=== PATIENT | female | born 1980 | race Caucasian/White ===

== ENCOUNTER 2020-01-18 09:04 | Outpatient (CLI) | payer OTHER ==
[2020-01-18 09:29] LABS: BASOPHILS # (AUTO) 0.1 10^3/uL (0.0-0.1); BASOPHILS % (AUTO) 1.8 %; EOSINOPHILS # (AUTO) 0.6 10^3/uL (0.0-0.7); EOSINOPHILS % (AUTO) 7.3 %; HGB - HEMOGLOBIN 13.5 g/dL (12.0-16.0); LYMPHOCYTES # (AUTO) 1.8 10^3/uL (1.5-3.5); LYMPHOCYTES % (AUTO) 22.8 %; MEAN CORPUSCULAR HEMOGLOBIN 28.6 pg (27.0-31.0); MEAN CORPUSCULAR HGB CONC 32.8 g/dL (32.0-36.0); MEAN CORPUSCULAR VOLUME 87.3 fL (81.0-99.0); MEAN PLATELET VOLUME 9.6 fL (7.9-10.8); MONOCYTES # (AUTO) 0.6 10^3/uL (0.0-1.0); MONOCYTES % (AUTO) 7.3 %; NEUTROPHILS # (AUTO) 4.8 10^3/uL (1.5-6.6); NEUTROPHILS % (AUTO) 60.2 %; PLT - PLATELET COUNT 379 10^3/uL (130-450); RED BLOOD COUNT 4.72 10^6/uL (4.20-5.40); RED CELL DISTRIBUTION WIDTH 12.6 % (12.0-15.0)
[2020-01-18 13:52] LABS: THYROID STIMULATING HORMONE 1.88 uIU/mL (0.34-5.60)
[2020-01-18 13:54] LABS: FREE T4 (FREE THYROXINE) 1.09 ng/dL (0.58-1.64)
== END 2020-01-18 09:05 | disposition home or self-care (01) ==
LOC: LAB 09:04
PROVIDERS: ATTEND Specialist
DX: R42 Dizziness and giddiness (principal); E06.3 Autoimmune thyroiditis
CPT/HCPCS: 36415; 84439; 84443; 85025

== ENCOUNTER 2021-06-21 10:58 | Emergency (ER) | payer MEDICAID, OTHER ==
[2021-06-21 11:05] VITALS: BP 149/89
[2021-06-21] MEDS ORDERED: KETOROLAC 60 MG/2 ML VIAL IM STA (12:32)
[2021-06-21] MEDS ORDERED: CHERRY SYRUP 10 ML UDC PO ONE (12:33)
[2021-06-21] MEDS ORDERED: DEXAMETHASONE 10 MG/ML VIAL PO STA (12:33)
--- NOTE | 2021-06-21 12:55 | ED Physician Documentation ---
PD HPI BACK PAIN - Stated complaint Stated Complaint: UPPER BODY PX - Chief complaint Chief Complaint: Back Pain - History obtained from History obtained from: Patient - History of Present Illness Timing - onset: Today Timing - duration: Hours Timing - details: Abrupt onset, Still present Location: Upper Quality: Pain, Spasm, Sharp Associated symptoms: No: Fever, Weakness, Numbness, Incontinent of urine, Unable to urinate, Hematuria, Incontinent of stool Improves with: Rest, Position Worsened by: Movement, Lifting, Twisting, Palpation Contributing factors: Other (short handed at work in OR.) Similar symptoms before: Has not had sx before Recently seen: Not recently seen - Additional information Additional information: Previously well 40-year-old female reports that 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 She states it is bilateral from her shoulder blades and inward and she has not had this previously. 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 She has been doing a lot of lifting and carrying. She has not been injured otherwise previously and she has been well prior to this. Review of Systems Constitutional: denies: Fever Eyes: denies: Decreased vision Ears: denies: Ear pain Nose: denies: Rhinorrhea / runny nose, Congestion Throat: denies: Sore throat Cardiac: denies: Chest pain / pressure, Palpitations Respiratory: denies: Dyspnea, Cough GI: denies: Abdominal Pain, Nausea, Vomiting, Constipation, Diarrhea : denies: Dysuria, Frequency Skin: denies: Rash Musculoskeletal: reports: Back pain. denies: Neck pain, Extremity pain Neurologic: denies: Generalized weakness, Focal weakness, Numbness PD PAST MEDICAL HISTORY - Past Medical History Psych: Anxiety - Past Surgical History Past Surgical History: Yes General: Cholecystectomy - Present Medications Home Medications: Ambulatory Orders Medication Instructions Recorded Confirmed Levothyroxine [Synthroid] 150 mcg PO DAILY 06/18/14 06/21/21 Cyclobenzaprine [Flexeril] 10 mg PO TID PRN #20 tablet 06/21/21 HYDROcod/ACETAM 5/325 [[place] 5/325] 1 - 2 tablet PO Q6H PRN #14 tablet 06/21/21 buPROPion HCL [Bupropion HCl] 100 mg PO BID 06/21/21 06/21/21 - Allergies Allergies/Adverse Reactions: Allergies Allergy/AdvReac Type Severity Reaction Status Date / Time morphine Allergy Nausea Verified 06/21/21 11:05 - Social History Does the pt smoke?: No Smoking Status: Never smoker Does the pt drink ETOH?: No Does the pt have substance abuse?: No PD ED PE NORMAL - Vitals Vital signs reviewed: Yes (Hypertensive) - General General: Alert and oriented X 3, Well developed/nourished, Other (Patient appears to be in pain with filler picker tone and flattened affect) - HEENT HEENT: Atraumatic, PERRL, EOMI - Neck Neck: Supple, no meningeal sign, No bony TTP - Cardiac Cardiac: RRR, No murmur - Respiratory Respiratory: No respiratory distress, Clear bilaterally, Other (Tenderness to the paraspinous muscles especially over the rhomboids bilaterally and from about T10-T2 paraspinous.) - Abdomen Abdomen: Normal bowel sounds, Soft, Non tender, Non distended, No organomegaly - Back Back: No CVA TTP, Other (Pain to the paraspinous muscles of the upper back and to the rhomboids) - Derm Derm: Normal color, No rash - Extremities Extremities: No deformity, No edema - Neuro Neuro: Alert and oriented X 3, sewer and cutter finger buff material 2-12 intact, No motor deficit, No sensory deficit, Normal speech Eye Opening: Spontaneous Motor: Obeys Commands Verbal: Oriented GCS Score: 15 - Psych Psych: Normal mood, Normal affect Results - Vitals Vitals: Vital Signs - 24 hr 06/21/21 11:03 Temperature 36.3 C L Heart Rate 72 Respiratory 16 Rate Blood Pressure 149/89 H O2 Saturation 95 Oxygen O2 Source Room air - Rads (name of study) chest Radiology: Prelim report reviewed PD MEDICAL DECISION MAKING - ED course Complexity details: reviewed old records, reviewed results, re-evaluated patient, considered differential, d/w patient ED course: 40-year-old female with 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 Here in the emerge department she is treated with dexamethasone 10 mg orally and Toradol 60 mg IM and she has some improvement in her pain associated with this. We will treat her with pain medication muscle relaxant have her hydrate and follow-up as needed. Departure - Departure Disposition: 01 Home, Self Care Clinical Impression: Thoracic myofascial strain Qualifiers: Encounter type: initial encounter Qualified Code(s): S29.019A - Strain of muscle and tendon of unspecified wall of thorax, initial encounter Condition: Stable Instructions: ED Sprain Thoracic Spine Follow-Up: [facility] [Provider Group] Prescriptions: Cyclobenzaprine [Flexeril] 10 mg PO TID PRN #20 tablet PRN Reason: Spasms HYDROcod/ACETAM 5/325 [[place] 5/325] 1 - 2 tablet PO Q6H PRN #14 tablet PRN Reason: Pain Forms: Activity restrictions Discharge Date/Time: 06/21/21 13:44
--- NOTE | 2021-06-21 13:28 | XRAY Report ---
PROCEDURE: Chest 1 View X-Ray INDICATIONS: chest pain TECHNIQUE: One view of the chest was acquired. COMPARISON: None. FINDINGS: Surgical changes and devices: None. Lungs and pleura: No pleural effusions or pneumothorax. Lungs are clear. Mediastinum: Mediastinal contours appear normal. Heart size is normal. Bones and chest wall: No suspicious bony lesions. Overlying soft tissues appear unremarkable. IMPRESSION: No acute cardiopulmonary abnormality. Reviewed by: Ernesto Tellez MD on 06/21/2021 1:26 PM PDT Approved by: Ernesto Tellez MD on 06/21/2021 1:26 PM PDT Station ID: [id number]
== END 2021-06-21 13:44 | disposition home or self-care (01) ==
LOC: ED 10:58
DX: S29.019A Strain of muscle and tendon of unspecified wall of thorax, initial encounter (principal); X58.XXXA Exposure to other specified factors, initial encounter
CPT/HCPCS: 71045; 96372; 99283; 99284; A9270

== ENCOUNTER 2023-03-14 08:07 | Emergency (ER) | payer MEDICAID ==
[2023-03-14] MEDS ORDERED: DEXAMETHASONE 10 MG/ML VIAL PO STA (08:25)
[2023-03-14] MEDS ORDERED: CHERRY SYRUP 10 ML UDC PO ONE (08:25)
--- NOTE | 2023-03-14 08:28 | ED Physician Documentation ---
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 She is bringing up yellow and green phlegm. She has not had fever. She did do a COVID test at home which was negative. She was asked by her cloth mercerizing supervisor to come to the emergency department to be checked for strep. Review of Systems Constitutional: reports: Myalgias, Sweats. denies: Fever Eyes: denies: Decreased vision Ears: reports: Ear pain Nose: reports: Rhinorrhea / runny nose, Congestion Throat: reports: Sore throat Cardiac: denies: Chest pain / pressure, Palpitations Respiratory: reports: Cough. denies: Dyspnea GI: denies: Abdominal Pain, Nausea, Vomiting, Diarrhea PD PAST MEDICAL HISTORY - Past Medical History Psych: Anxiety - Past Surgical History Past Surgical History: Yes General: Cholecystectomy - Present Medications Home Medications: Ambulatory Orders Medication Instructions Recorded Confirmed Azithromycin [Zithromax] 250 mg PO DAILY #6 tablet 03/14/23 Levothyroxine [Synthroid] 125 mcg PO QDAC 03/14/23 03/14/23 amLODIPine [Norvasc] 10 mg PO DAILY 03/14/23 03/14/23 - Allergies Allergies/Adverse Reactions: Allergies Allergy/AdvReac Type Severity Reaction Status Date / Time morphine Allergy Nausea Verified 03/14/23 08:20 - Social History Does the pt smoke?: No Smoking Status: Never smoker Does the pt drink ETOH?: No Does the pt have substance abuse?: No PD ED PE NORMAL - General General: Alert and oriented X 3, No acute distress, Well developed/nourished - HEENT HEENT: Atraumatic, PERRL, EOMI, Ears normal, Moist mucous membranes, Other (minimal tonsillar hypertrophy) - Neck Neck: Supple, no meningeal sign, No bony TTP - Cardiac Cardiac: RRR, No murmur - Respiratory Respiratory: No respiratory distress, Clear bilaterally - Abdomen Abdomen: Soft, Non tender - Back Back: No CVA TTP, No spinal TTP - Derm Derm: Normal color, Warm and dry, No rash - Extremities Extremities: No deformity, No edema - Neuro Neuro: Alert and oriented X 3, feed research aide 2-12 intact, No motor deficit, Normal speech Eye Opening: Spontaneous Motor: Obeys Commands Verbal: Oriented GCS Score: 15 - Psych Psych: Normal mood, Normal affect Results - Vitals Vitals: Vital Signs - 24 hr 03/14/23 03/14/23 08:17 10:25 Temperature 36.9 C Heart Rate 90 78 Respiratory 16 16 Rate Blood Pressure 129/90 H 134/94 H O2 Saturation 96 100 Oxygen O2 Source Room air - Labs Labs: Laboratory Tests 03/14/23 03/14/23 08:32 08:32 Nasal Adenovirus (PCR) NOT DETECTED Nasal B. parapertussis DNA (PCR) NOT DETECTED Nasal Coronavir 229E PCR NOT DETECTED Nasal Coronavir HKU1 PCR NOT DETECTED Nasal Coronavir NL63 PCR NOT DETECTED Nasal Coronavir OC43 PCR NOT DETECTED Nasal Enterovir/Rhinovir PCR NOT DETECTED Nasal Influenza B PCR NOT DETECTED Nasal Influenza A PCR NOT DETECTED Nasal Parainfluen 1 PCR NOT DETECTED Nasal Parainfluen 2 PCR NOT DETECTED Nasal Parainfluen 3 PCR NOT DETECTED Nasal Parainfluen 4 PCR NOT DETECTED Nasal RSV (PCR) NOT DETECTED Nasal B.pertussis DNA PCR NOT DETECTED Nasal C.pneumoniae (PCR) NOT DETECTED [place] Human Metapneumo PCR NOT DETECTED Nasal M.pneumoniae (PCR) NOT DETECTED Nasal SARS-CoV-2 (PCR) NOT DETECTED Group A Strep Rapid Negative PD Medical Decision Making - ED course Complexity details: reviewed results, re-evaluated patient, considered differential, d/w patient ED course: 42-year-old Sultana Bunn has developed a sore throat, aches and fever beginning last night and she has lost her voice. 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 Departure - Departure Disposition: 01 Home, Self Care Clinical Impression: Viral URI with cough Condition: Stable Instructions: ED URI Viral Follow-Up: ALEX COUCH MD [Primary Care Provider] - Prescriptions: Azithromycin [Zithromax] 250 mg PO DAILY #6 tablet Comments: Nora we did not find evidence of a current virus in your nasal smear. You are coughing up yellow-green phlegm indicating a likely bacterial over infection of a previously inflamed site. We are prescribing some azithromycin for this. Our expectations with this is improvement in your cough and production of phlegm over the next 2 to 5 days. I have given you a note for work for 5 days. The azithromycin has been E scribed to the [facility] in [place]. Forms: Activity restrictions Discharge Date/Time: 03/14/23 10:26
[2023-03-14 08:51] LABS: RAPID STREP SCREEN Negative (Negative)
--- OUTSIDE RECORDS SUMMARY | 2023-03-14 09:04 | EXTERNAL MEDICAL SUMMARY RPT | Continuity of Care Document ---
Author Name Unknown Address [address] [place] [address] Phone Organization [facility] Address [address] [place] [address] Phone Care Team Providers Care Environmental Protection Specialist Name Role Phone Carson Montes De Oca Unavailable Unavailable Medications date description facility 2023-01-13 00:[address] [facility] 2023-01-15 00:[address] [facility] Problems date description facility 2023-01-15 15:21 Hypothyroidism, unspecified [facility] 2023-01-15 15:21 Essential (primary) hypertensio n [facility] 2023-01-15 15:[address] [facility] 2023-01-15 15:21 Occipital neuralgia [facility] 2023-01-15 15:21 Attention and concentration def icit [facility] 2023-01-15 15:[address] [facility] 2023-01-15 15:21 Hyperglycemia, unspecified [facility] 2023-01-15 15:21 Abnormal levels of other serum enzymes [facility] Results/Labs test date author facility value unit interpretation Result panel 1 (unknown) (no date) (unknown) [facility] (no value) (units unknown) (unknown) Result panel 2 (unknown) (no date) (unknown) [facility] (no value) (units unknown) (unknown) Result panel 3 (unknown) (no date) (unknown) [facility] (no value) (units unknown) (unknown) Result panel 4 (unknown) (no date) (unknown) [facility] (no value) (units unknown) (unknown) Result panel 5 (unknown) (no date) (unknown) [facility] (no value) (units unknown) (unknown) Result panel 6 (unknown) (no date) (unknown) [facility] (no value) (units unknown) (unknown) Result panel 7 (unknown) (no date) (unknown) (unknown) See Separate Report (units unknown) (unknown) Result panel 8 (unknown) (no date) (unknown) (unknown) (no value) (units unknown) 8251-1 (unknown) (no date) (unknown) (unknown) (no value) (units unknown) (unknown) (unknown) (no date) (unknown) (unknown) >10.00 iu/ml (unknown ) (unknown) (no date) (unknown) (unknown) >10.00 iu/ml 29846-3 (unknown) (no date) (unknown) (unknown) 0.01 iu/ml (unknown ) (unknown) (no date) (unknown) (unknown) 0.01 iu/ml 65143-3 (unknown) (no date) (unknown) (unknown) 0.01 iu/ml 56717-9 (unknown) (no date) (unknown) (unknown) 0.01 iu/ml 55544-3 (unknown) (no date) (unknown) (unknown) Negative (units unknown) 52808-0 (unknown) (no date) (unknown) (unknown) Negative (units unknown) (unknown) Result panel 9 (unknown) (no date) (unknown) (unknown) >10.00 iu/ml (unknown ) (unknown) (no date) (unknown) (unknown) 0.01 iu/ml (unknown ) (unknown) (no date) (unknown) (unknown) Comment (units unknown) (unknown) (unknown) (no date) (unknown) (unknown) Comment (units unknown) (unknown) (unknown) (no date) (unknown) (unknown) Negative (units unknown) (unknown) (unknown) (no date) (unknown) (unknown) Negative (units unknown) (unknown) Result panel 10 (unknown) (no date) (unknown) (unknown) (no value) (units unknown) (unknown) (unknown) (no date) (unknown) (unknown) 01/15/23 (units unknown) (unknown) (unknown) (no date) (unknown) (unknown) 09:12 (units unknown) (unknown) (unknown) (no date) (unknown) (unknown) [id number] (units unknown) (unknown) (unknown) (no date) (unknown) (unknown) Age/Sex: 42 / F Date of Service: (units unknown) (unknown) (unknown) (no date) (unknown) (unknown) Allergies (units unknown) (unknown) (unknown) (no date) (unknown) (unknown) [place] [address] (units unknown) (unknown) (unknown) (no date) (unknown) (unknown) Anesthesia (units unknown) (unknown) (unknown) (no date) (unknown) (unknown) Anxiety (units unknown) (unknown) (unknown) (no date) (unknown) (unknown) Attending Dr: Carson Montes De Oca MD (units unknown) (unknown) (unknown) (no date) (unknown) (unknown) BP 142/88 H (units unknown) (unknown) (unknown) (no date) (unknown) (unknown) Blood Pressure Location Rt radial (units unknown) (unknown) (unknown) (no date) (unknown) (unknown) Chronic facial pain (units unknown) (unknown) (unknown) (no date) (unknown) (unknown) Chronic fatigue (uni ts unknown) (unknown) (unknown) (no date) (unknown) (unknown) : 3 Acct:[id number] (units unknown) (unknown) (unknown) (no date) (unknown) (unknown) Depression wit h anxiety (units unknown) (unknown) (unknown) (no date) (unknown) (unknown) Dept at . (units unknown) (unknown) (unknown) (no date) (unknown) (unknown) Documented By: Carson Montes De Oca MD 01/15/23 0909 (units unknown) (unknown) (unknown) (no date) (unknown) (unknown) Draft (units unknown) (unknown) (unknown) (no date) (unknown) (unknown) Elevated liver enzymes (units unknown) (unknown) (unknown) (no date) (unknown) (unknown) Family Practic e Office Visit (units unknown) (unknown) (unknown) (no date) (unknown) (unknown) [facility] (units unknown) (unknown) (unknown) (no date) (unknown) (unknown) Robert's thyroiditis (units unknown) (unknown) (unknown) (no date) (unknown) (unknown) Headache disorder (u nits unknown) (unknown) (unknown) (no date) (unknown) (unknown) Height 5 ft 5 in (un its unknown) (unknown) (unknown) (no date) (unknown) (unknown) Herpes (-2013) (unit s unknown) (unknown) (unknown) (no date) (unknown) (unknown) Hip pain (-2016) (un its unknown) (unknown) (unknown) (no date) (unknown) (unknown) History of cholecystectomy (-2001) (units unknown) (unknown) (unknown) (no date) (unknown) (unknown) History of endometrial biopsy (units unknown) (unknown) (unknown) (no date) (unknown) (unknown) Hypertension (units unknown) (unknown) (unknown) (no date) (unknown) (unknown) Hypothyroidism (-2009) (units unknown) (unknown) (unknown) (no date) (unknown) (unknown) Intake Note: (units unknown) (unknown) (unknown) (no date) (unknown) (unknown) Intake perform ed by: Luanne Sibley (units unknown) (unknown) (unknown) (no date) (unknown) (unknown) Intake (units unknown) (unknown) (unknown) (no date) (unknown) (unknown) Intake- Alli al Staff (units unknown) (unknown) (unknown) (no date) (unknown) (unknown) Last Menstural Cycle + Details (units unknown) (unknown) (unknown) (no date) (unknown) (unknown) Loc: [facility] (units unknown) (unknown) (unknown) (no date) (unknown) (unknown) Medical Histor y (Updated 10/10/22 @ 07:49 by Carson Montes De Oca MD) (units unknown) (unknown) (unknown) (no date) (unknown) (unknown) Menorrhagia (units unknown) (unknown) (unknown) (no date) (unknown) (unknown) Occipital neuralgia (units unknown) (unknown) (unknown) (no date) (unknown) (unknown) Other Menstrua l Period: Other ([facility] 01/2020) (units unknown) (unknown) (unknown) (no date) (unknown) (unknown) Oxygen Deliver y Method room air (units unknown) (unknown) (unknown) (no date) (unknown) (unknown) PFSH (units unknown) (unknown) (unknown) (no date) (unknown) (unknown) Palpitations (units unknown) (unknown) (unknown) (no date) (unknown) (unknown) Patient: Nora Bunn MR#: [id number] (units unknown) (unknown) (unknown) (no date) (unknown) (unknown) Position Sitting (un its unknown) (unknown) (unknown) (no date) (unknown) (unknown) Pulse 67 (units unknown) (unknown) (unknown) (no date) (unknown) (unknown) Pulse Oximetry (%) 99 (units unknown) (unknown) (unknown) (no date) (unknown) (unknown) Pulse Source Monitor (units unknown) (unknown) (unknown) (no date) (unknown) (unknown) Reason For Visit (un its unknown) (unknown) (unknown) (no date) (unknown) (unknown) Respiration 20 (unit s unknown) (unknown) (unknown) (no date) (unknown) (unknown) Right hip pain (unit s unknown) (unknown) (unknown) (no date) (unknown) (unknown) Signed By: (units unknown) (unknown) (unknown) (no date) (unknown) (unknown) Smoking Status : Current some day smoker (units unknown) (unknown) (unknown) (no date) (unknown) (unknown) Social History (unit s unknown) (unknown) (unknown) (no date) (unknown) (unknown) Surgical Histo ry (units unknown) (unknown) (unknown) (no date) (unknown) (unknown) This note may have been all or partially generated using voice recognition (units unknown) (unknown) (unknown) (no date) (unknown) (unknown) Thyroid nodule (-2016) (units unknown) (unknown) (unknown) (no date) (unknown) (unknown) Tobacco + Subs tance Use (units unknown) (unknown) (unknown) (no date) (unknown) (unknown) Tobacco Status (unit s unknown) (unknown) (unknown) (no date) (unknown) (unknown) Trigeminal ner ve disorder, unspecified (units unknown) (unknown) (unknown) (no date) (unknown) (unknown) Visit Reasons: f/u new BP meds, weight loss options (units unknown) (unknown) (unknown) (no date) (unknown) (unknown) Vitals (units unknown) (unknown) (unknown) (no date) (unknown) (unknown) alcohol intake : current (units unknown) (unknown) (unknown) (no date) (unknown) (unknown) have occurred. If there are any questions, please contact the Medical Records (units unknown) (unknown) (unknown) (no date) (unknown) (unknown) household memb ers: spouse and significant other (units unknown) (unknown) (unknown) (no date) (unknown) (unknown) may occur. Occasional wrong-word or 'sound-alike' substitutions may have (units unknown) (unknown) (unknown) (no date) (unknown) (unknown) morphine [MORP NIYA] Allergy (Intermediate, Verified 04/10/21 12:56) (units unknown) (unknown) (unknown) (no date) (unknown) (unknown) occurred due t o the inherent limitations of voice recognition software. Please (units unknown) (unknown) (unknown) (no date) (unknown) (unknown) palpitations, and hot flashes (units unknown) (unknown) (unknown) (no date) (unknown) (unknown) projectile vomiting (units unknown) (unknown) (unknown) (no date) (unknown) (unknown) pt arrives for appt and states she wants to discuss weight loss options, heart (units unknown) (unknown) (unknown) (no date) (unknown) (unknown) read the note carefully and recognize, using context, where these substitutions (units unknown) (unknown) (unknown) (no date) (unknown) (unknown) software. Alth ough every effort is made to edit content, executive marketing assistant errors (units unknown) (unknown) Result panel 11 (unknown) (no date) (unknown) (unknown) (no value) (units unknown) (unknown) (unknown) (no date) (unknown) (unknown) (1) Hypertension: (u nits unknown) (unknown) (unknown) (no date) (unknown) (unknown) (2) Elevated l iver enzymes: (units unknown) (unknown) (unknown) (no date) (unknown) (unknown) (3) Hypothyroidism: (units unknown) (unknown) (unknown) (no date) (unknown) (unknown) (4) Hyperglycemia: ( units unknown) (unknown) (unknown) (no date) (unknown) (unknown) (5) Obesity: (units unknown) (unknown) (unknown) (no date) (unknown) (unknown) (6) Hirsutism: (unit s unknown) (unknown) (unknown) (no date) (unknown) (unknown) (7) Palpitations: (u nits unknown) (unknown) (unknown) (no date) (unknown) (unknown) 01/15/23 (units unknown) (unknown) (unknown) (no date) (unknown) (unknown) 09:12 (units unknown) (unknown) (unknown) (no date) (unknown) (unknown) [id number] (units unknown) (unknown) (unknown) (no date) (unknown) (unknown) Abnormal level s of other serum enzymes (units unknown) (unknown) (unknown) (no date) (unknown) (unknown) Age/Sex: 42 / F Date of Service: (units unknown) (unknown) (unknown) (no date) (unknown) (unknown) Allergies (units unknown) (unknown) (unknown) (no date) (unknown) (unknown) [place] [address] (units unknown) (unknown) (unknown) (no date) (unknown) (unknown) Anesthesia (units unknown) (unknown) (unknown) (no date) (unknown) (unknown) Anxiety (units unknown) (unknown) (unknown) (no date) (unknown) (unknown) Assessment + Plan (u nits unknown) (unknown) (unknown) (no date) (unknown) (unknown) Attending Dr: Carson Montes De Oca MD (units unknown) (unknown) (unknown) (no date) (unknown) (unknown) BP 142/88 H (units unknown) (unknown) (unknown) (no date) (unknown) (unknown) Blood Pressure Location Rt radial (units unknown) (unknown) (unknown) (no date) (unknown) (unknown) Chronic facial pain (units unknown) (unknown) (unknown) (no date) (unknown) (unknown) Chronic fatigue (uni ts unknown) (unknown) (unknown) (no date) (unknown) (unknown) : 3 Acct:[id number] (units unknown) (unknown) (unknown) (no date) (unknown) (unknown) Depression wit h anxiety (units unknown) (unknown) (unknown) (no date) (unknown) (unknown) Dept at . (units unknown) (unknown) (unknown) (no date) (unknown) (unknown) Discontinued Reason: Provider's Order 100 mg PO BID 60 ea 3RF (units unknown) (unknown) (unknown) (no date) (unknown) (unknown) Discontinued (units unknown) (unknown) (unknown) (no date) (unknown) (unknown) Documented By: Carson Montes De Oca MD 01/15/23 0909 (units unknown) (unknown) (unknown) (no date) (unknown) (unknown) Draft (units unknown) (unknown) (unknown) (no date) (unknown) (unknown) Elevated liver enzymes (units unknown) (unknown) (unknown) (no date) (unknown) (unknown) Essential (danial yoseph) hypertension (units unknown) (unknown) (unknown) (no date) (unknown) (unknown) Essential (danial yoseph) hypertension, R73.9 - Hyperglycemia, unspecified, R74.8 (units unknown) (unknown) (unknown) (no date) (unknown) (unknown) Estrogen 1 Wee k L68.0 - Hirsutism (units unknown) (unknown) (unknown) (no date) (unknown) (unknown) Family Practic e Office Visit (units unknown) (unknown) (unknown) (no date) (unknown) (unknown) [facility] (units unknown) (unknown) (unknown) (no date) (unknown) (unknown) Robert's thyroiditis (units unknown) (unknown) (unknown) (no date) (unknown) (unknown) Headache disorder (u nits unknown) (unknown) (unknown) (no date) (unknown) (unknown) Height 5 ft 5 in (un its unknown) (unknown) (unknown) (no date) (unknown) (unknown) Hemoglobin A1C % w Est Avg Glu 1 Week E03.9 - Hypothyroidism, unspecified, I10 (units unknown) (unknown) (unknown) (no date) (unknown) (unknown) Herpes (-2012) (unit s unknown) (unknown) (unknown) (no date) (unknown) (unknown) Hip pain (-2016) (un its unknown) (unknown) (unknown) (no date) (unknown) (unknown) History of cholecystectomy (-2001) (units unknown) (unknown) (unknown) (no date) (unknown) (unknown) History of endometrial biopsy (units unknown) (unknown) (unknown) (no date) (unknown) (unknown) Hypertension t ype: primary hypertension Qualified Code(s): I10 (units unknown) (unknown) (unknown) (no date) (unknown) (unknown) Hypertension (units unknown) (unknown) (unknown) (no date) (unknown) (unknown) Hypothyroidism (-2009) (units unknown) (unknown) (unknown) (no date) (unknown) (unknown) Hypothyroidism type: acquired Qualified Code(s): E03.9 (units unknown) (unknown) (unknown) (no date) (unknown) (unknown) Hypothyroidism , unspecified (units unknown) (unknown) (unknown) (no date) (unknown) (unknown) Intake Note: (units unknown) (unknown) (unknown) (no date) (unknown) (unknown) Intake perform ed by: Luanne Sibley (units unknown) (unknown) (unknown) (no date) (unknown) (unknown) Intake (units unknown) (unknown) (unknown) (no date) (unknown) (unknown) Intake- Alli al Staff (units unknown) (unknown) (unknown) (no date) (unknown) (unknown) Last Menstural Cycle + Details (units unknown) (unknown) (unknown) (no date) (unknown) (unknown) Loc: [facility] (units unknown) (unknown) (unknown) (no date) (unknown) (unknown) Medical Histor y (Updated 10/10/22 @ 07:49 by Carson Montes De Oca MD) (units unknown) (unknown) (unknown) (no date) (unknown) (unknown) Medications: (units unknown) (unknown) (unknown) (no date) (unknown) (unknown) Menorrhagia (units unknown) (unknown) (unknown) (no date) (unknown) (unknown) New (units unknown) (unknown) (unknown) (no date) (unknown) (unknown) Occipital neuralgia (units unknown) (unknown) (unknown) (no date) (unknown) (unknown) Orders (units unknown) (unknown) (unknown) (no date) (unknown) (unknown) Orders: (units unknown) (unknown) (unknown) (no date) (unknown) (unknown) Other Menstrua l Period: Other ([facility] 01/2020) (units unknown) (unknown) (unknown) (no date) (unknown) (unknown) Oxygen Deliver y Method room air (units unknown) (unknown) (unknown) (no date) (unknown) (unknown) PFSH (units unknown) (unknown) (unknown) (no date) (unknown) (unknown) Palpitations (units unknown) (unknown) (unknown) (no date) (unknown) (unknown) Patient: Nora Bunn MR#: [id number] (units unknown) (unknown) (unknown) (no date) (unknown) (unknown) Position Sitting (un its unknown) (unknown) (unknown) (no date) (unknown) (unknown) Pulse 67 (units unknown) (unknown) (unknown) (no date) (unknown) (unknown) Pulse Oximetry (%) 99 (units unknown) (unknown) (unknown) (no date) (unknown) (unknown) Pulse Source Monitor (units unknown) (unknown) (unknown) (no date) (unknown) (unknown) Qualifiers: (units unknown) (unknown) (unknown) (no date) (unknown) (unknown) Reason For Visit (un its unknown) (unknown) (unknown) (no date) (unknown) (unknown) Referral Cardio/Pulmonary Rehab R00.2 - Palpitations (units unknown) (unknown) (unknown) (no date) (unknown) (unknown) Referral Dieta ry E03.9 - Hypothyroidism, unspecified, E66.9 - Obesity, (units unknown) (unknown) (unknown) (no date) (unknown) (unknown) Referrals (units unknown) (unknown) (unknown) (no date) (unknown) (unknown) Respiration 20 (unit s unknown) (unknown) (unknown) (no date) (unknown) (unknown) Right hip pain (unit s unknown) (unknown) (unknown) (no date) (unknown) (unknown) Signed By: (units unknown) (unknown) (unknown) (no date) (unknown) (unknown) Smoking Status : Current some day smoker (units unknown) (unknown) (unknown) (no date) (unknown) (unknown) Social History (unit s unknown) (unknown) (unknown) (no date) (unknown) (unknown) Status: Acute (units unknown) (unknown) (unknown) (no date) (unknown) (unknown) Status: Chronic (uni ts unknown) (unknown) (unknown) (no date) (unknown) (unknown) Surgical Histo ry (units unknown) (unknown) (unknown) (no date) (unknown) (unknown) Testosterone F ree and Total 1 Week L68.0 - Hirsutism (units unknown) (unknown) (unknown) (no date) (unknown) (unknown) This note may have been all or partially generated using voice recognition (units unknown) (unknown) (unknown) (no date) (unknown) (unknown) Thyroid nodule (-2016) (units unknown) (unknown) (unknown) (no date) (unknown) (unknown) Tobacco + Subs tance Use (units unknown) (unknown) (unknown) (no date) (unknown) (unknown) Tobacco Status (unit s unknown) (unknown) (unknown) (no date) (unknown) (unknown) Trigeminal ner ve disorder, unspecified (units unknown) (unknown) (unknown) (no date) (unknown) (unknown) Visit Reasons: f/u new BP meds, weight loss options (units unknown) (unknown) (unknown) (no date) (unknown) (unknown) Vitals (units unknown) (unknown) (unknown) (no date) (unknown) (unknown) alcohol intake : current (units unknown) (unknown) (unknown) (no date) (unknown) (unknown) bupropion HCl (Wellbutrin SR) (units unknown) (unknown) (unknown) (no date) (unknown) (unknown) bupropion HCl (Wellbutrin XL) 150 mg PO QAM 90 tabs 3RF (units unknown) (unknown) (unknown) (no date) (unknown) (unknown) have occurred. If there are any questions, please contact the Medical Records (units unknown) (unknown) (unknown) (no date) (unknown) (unknown) household memb ers: spouse and significant other (units unknown) (unknown) (unknown) (no date) (unknown) (unknown) may occur. Occasional wrong-word or 'sound-alike' substitutions may have (units unknown) (unknown) (unknown) (no date) (unknown) (unknown) morphine [MORP NIYA] Allergy (Intermediate, Verified 04/10/21 12:56) (units unknown) (unknown) (unknown) (no date) (unknown) (unknown) occurred due t o the inherent limitations of voice recognition software. Please (units unknown) (unknown) (unknown) (no date) (unknown) (unknown) other serum enzymes (units unknown) (unknown) (unknown) (no date) (unknown) (unknown) palpitations, and hot flashes (units unknown) (unknown) (unknown) (no date) (unknown) (unknown) projectile vomiting (units unknown) (unknown) (unknown) (no date) (unknown) (unknown) pt arrives for appt and states she wants to discuss weight loss options, heart (units unknown) (unknown) (unknown) (no date) (unknown) (unknown) read the note carefully and recognize, using context, where these substitutions (units unknown) (unknown) (unknown) (no date) (unknown) (unknown) software. Alth ough every effort is made to edit content, executive marketing assistant errors (units unknown) (unknown) (unknown) (no date) (unknown) (unknown) unspecified, I 10 - Essential (primary) hypertension, R74.8 - Abnormal levels of (units unknown) (unknown) Result panel 12 (unknown) (no date) (unknown) (unknown) 0.29 ng/dl (unknown ) (unknown) (no date) (unknown) (unknown) 0.29 ng/dl 2991-8 (unknown) (no date) (unknown) (unknown) 1.36 % (unknown ) (unknown) (no date) (unknown) (unknown) 1.36 % 18114-4 (unknown) (no date) (unknown) (unknown) 107 pg/ml 2254-1 (unknown) (no date) (unknown) (unknown) 107 pg/ml (unknown ) (unknown) (no date) (unknown) (unknown) 21.4 ng/dl 2986-8 (unknown) (no date) (unknown) (unknown) 21.4 ng/dl (unknown ) Result panel 13 (unknown) (no date) (unknown) (unknown) 1.3 % (unknown ) (unknown) (no date) (unknown) (unknown) 100 /ul (unknown ) (unknown) (no date) (unknown) (unknown) 13.3 g/dl (unknown ) (unknown) (no date) (unknown) (unknown) 13.4 % (unknown ) (unknown) (no date) (unknown) (unknown) 1600 /ul (unknown ) (unknown) (no date) (unknown) (unknown) 200 /ul (unknown ) (unknown) (no date) (unknown) (unknown) 21.4 % (unknown ) (unknown) (no date) (unknown) (unknown) 26.9 pg (unknown ) (unknown) (no date) (unknown) (unknown) 3.0 % (unknown ) (unknown) (no date) (unknown) (unknown) 33.6 % (unknown ) (unknown) (no date) (unknown) (unknown) 39.5 % (unknown ) (unknown) (no date) (unknown) (unknown) 4.93 x10 6/ul (unknow n) (unknown) (no date) (unknown) (unknown) 400 /ul (unknown ) (unknown) (no date) (unknown) (unknown) 400 x10 3/ul (unknow n) (unknown) (no date) (unknown) (unknown) 5.5 % (unknown ) (unknown) (no date) (unknown) (unknown) 5300 /ul (unknown ) (unknown) (no date) (unknown) (unknown) 68.8 % (unknown ) (unknown) (no date) (unknown) (unknown) 7.7 x10 3/ul (unknow n) (unknown) (no date) (unknown) (unknown) 80.2 fl (unknown ) Result panel 14 (unknown) (no date) (unknown) (unknown) 5.3 % (unknown ) (unknown) (no date) (unknown) (unknown) 5.3 % (unknown ) Result panel 15 (unknown) (no date) (unknown) (unknown) (no value) (units unknown) (unknown) (unknown) (no date) (unknown) (unknown) (1) Hypertension: (u nits unknown) (unknown) (unknown) (no date) (unknown) (unknown) (2) Elevated l iver enzymes: (units unknown) (unknown) (unknown) (no date) (unknown) (unknown) (3) Hypothyroidism: (units unknown) (unknown) (unknown) (no date) (unknown) (unknown) (4) Hyperglycemia: ( units unknown) (unknown) (unknown) (no date) (unknown) (unknown) (5) Obesity: (units unknown) (unknown) (unknown) (no date) (unknown) (unknown) (6) Hirsutism: (unit s unknown) (unknown) (unknown) (no date) (unknown) (unknown) (7) Palpitations: (u nits unknown) (unknown) (unknown) (no date) (unknown) (unknown) 01/15/23 1043 (units unknown) (unknown) (unknown) (no date) (unknown) (unknown) 01/15/23 (units unknown) (unknown) (unknown) (no date) (unknown) (unknown) 09:12 (units unknown) (unknown) (unknown) (no date) (unknown) (unknown) [id number] (units unknown) (unknown) (unknown) (no date) (unknown) (unknown) Abnormal level s of other serum enzymes (units unknown) (unknown) (unknown) (no date) (unknown) (unknown) Age/Sex: 42 / F Date of Service: (units unknown) (unknown) (unknown) (no date) (unknown) (unknown) Allergies (units unknown) (unknown) (unknown) (no date) (unknown) (unknown) Nora is a 42-year-old female with a history of hypothyroidism who is here to (units unknown) (unknown) (unknown) (no date) (unknown) (unknown) [place] [address] (units unknown) (unknown) (unknown) (no date) (unknown) (unknown) Anesthesia (units unknown) (unknown) (unknown) (no date) (unknown) (unknown) Anxiety (units unknown) (unknown) (unknown) (no date) (unknown) (unknown) Appearance: (units unknown) (unknown) (unknown) (no date) (unknown) (unknown) Assessment + Plan (u nits unknown) (unknown) (unknown) (no date) (unknown) (unknown) Attending Dr: Carson Montes De Oca MD (units unknown) (unknown) (unknown) (no date) (unknown) (unknown) BP 142/88 H (units unknown) (unknown) (unknown) (no date) (unknown) (unknown) Blood Pressure Location Rt radial (units unknown) (unknown) (unknown) (no date) (unknown) (unknown) CTAB (units unknown) (unknown) (unknown) (no date) (unknown) (unknown) CV (units unknown) (unknown) (unknown) (no date) (unknown) (unknown) Chief Complaint (uni ts unknown) (unknown) (unknown) (no date) (unknown) (unknown) Chief Complain t: Follow up palpitations, weight (units unknown) (unknown) (unknown) (no date) (unknown) (unknown) Chronic facial pain (units unknown) (unknown) (unknown) (no date) (unknown) (unknown) Chronic fatigue (uni ts unknown) (unknown) (unknown) (no date) (unknown) (unknown) Code(s): E66.9 - Obesity, unspecified; Z68.36 - Body mass index [BMI] 36.0-36.9, (units unknown) (unknown) (unknown) (no date) (unknown) (unknown) Cognition: (units unknown) (unknown) (unknown) (no date) (unknown) (unknown) Const General: healthy appearing, pleasant, no acute distress (units unknown) (unknown) (unknown) (no date) (unknown) (unknown) : 3 Acct:[id number] (units unknown) (unknown) (unknown) (no date) (unknown) (unknown) Depression wit h anxiety (units unknown) (unknown) (unknown) (no date) (unknown) (unknown) Dept at . (units unknown) (unknown) (unknown) (no date) (unknown) (unknown) Details: (units unknown) (unknown) (unknown) (no date) (unknown) (unknown) Discontinued Reason: Provider's Order 100 mg PO BID 60 ea 3RF (units unknown) (unknown) (unknown) (no date) (unknown) (unknown) Discontinued (units unknown) (unknown) (unknown) (no date) (unknown) (unknown) Documented By: Carson Montes De Oca MD 01/15/23 0909 (units unknown) (unknown) (unknown) (no date) (unknown) (unknown) Effort + Inspection: (units unknown) (unknown) (unknown) (no date) (unknown) (unknown) Elevated liver enzymes (units unknown) (unknown) (unknown) (no date) (unknown) (unknown) Essential (danial hameed) hypertension (units unknown) (unknown) (unknown) (no date) (unknown) (unknown) Essential (danial hameed) hypertension, R73.9 - Hyperglycemia, unspecified, R74.8 (units unknown) (unknown) (unknown) (no date) (unknown) (unknown) Estrogen Today L68.0 - Hirsutism (units unknown) (unknown) (unknown) (no date) (unknown) (unknown) Exam Narrative (unit s unknown) (unknown) (unknown) (no date) (unknown) (unknown) Exam Narrative: (uni ts unknown) (unknown) (unknown) (no date) (unknown) (unknown) Exam (units unknown) (unknown) (unknown) (no date) (unknown) (unknown) Family Practic e Office Visit (units unknown) (unknown) (unknown) (no date) (unknown) (unknown) [facility] (units unknown) (unknown) (unknown) (no date) (unknown) (unknown) General: (units unknown) (unknown) (unknown) (no date) (unknown) (unknown) HPI (units unknown) (unknown) (unknown) (no date) (unknown) (unknown) Robert's thyroiditis (units unknown) (unknown) (unknown) (no date) (unknown) (unknown) Headache disorder (u nits unknown) (unknown) (unknown) (no date) (unknown) (unknown) Height 5 ft 5 in (un its unknown) (unknown) (unknown) (no date) (unknown) (unknown) Hemoglobin A1C % w Est Avg Glu Today E03.9 - Hypothyroidism, unspecified, I10 (units unknown) (unknown) (unknown) (no date) (unknown) (unknown) Herpes (-2012) (unit s unknown) (unknown) (unknown) (no date) (unknown) (unknown) Hip pain (-2016) (un its unknown) (unknown) (unknown) (no date) (unknown) (unknown) History of cholecystectomy (-2001) (units unknown) (unknown) (unknown) (no date) (unknown) (unknown) History of endometrial biopsy (units unknown) (unknown) (unknown) (no date) (unknown) (unknown) Home blood pressures have been improving since increasing amlodipine to 10 mg (units unknown) (unknown) (unknown) (no date) (unknown) (unknown) Hypertension t ype: primary hypertension Qualified Code(s): I10 (units unknown) (unknown) (unknown) (no date) (unknown) (unknown) Hypertension (units unknown) (unknown) (unknown) (no date) (unknown) (unknown) Hypothyroidism (-2009) (units unknown) (unknown) (unknown) (no date) (unknown) (unknown) Hypothyroidism type: acquired Qualified Code(s): E03.9 (units unknown) (unknown) (unknown) (no date) (unknown) (unknown) Hypothyroidism , unspecified (units unknown) (unknown) (unknown) (no date) (unknown) (unknown) Intake Note: (units unknown) (unknown) (unknown) (no date) (unknown) (unknown) Intake perform ed by: Luanne Sibley (units unknown) (unknown) (unknown) (no date) (unknown) (unknown) Intake (units unknown) (unknown) (unknown) (no date) (unknown) (unknown) Intake- Alli sun Staff (units unknown) (unknown) (unknown) (no date) (unknown) (unknown) Last Menstural Cycle + Details (units unknown) (unknown) (unknown) (no date) (unknown) (unknown) Loc: [facility] (units unknown) (unknown) (unknown) (no date) (unknown) (unknown) Medical Histor y (Updated 10/10/22 @ 07:49 by Carson Montes De Oca MD) (units unknown) (unknown) (unknown) (no date) (unknown) (unknown) Medications: (units unknown) (unknown) (unknown) (no date) (unknown) (unknown) Menorrhagia (units unknown) (unknown) (unknown) (no date) (unknown) (unknown) Neuro (units unknown) (unknown) (unknown) (no date) (unknown) (unknown) New (units unknown) (unknown) (unknown) (no date) (unknown) (unknown) Obesity type: unspecified obesity type Obesity classification: adult (units unknown) (unknown) (unknown) (no date) (unknown) (unknown) Occipital neuralgia (units unknown) (unknown) (unknown) (no date) (unknown) (unknown) Orders (units unknown) (unknown) (unknown) (no date) (unknown) (unknown) Orders: (units unknown) (unknown) (unknown) (no date) (unknown) (unknown) Orientation: a lert, awake and oriented x3 (units unknown) (unknown) (unknown) (no date) (unknown) (unknown) Other Menstrua l Period: Other ([facility] 01/2020) (units unknown) (unknown) (unknown) (no date) (unknown) (unknown) Oxygen Deliver y Method room air (units unknown) (unknown) (unknown) (no date) (unknown) (unknown) PFSH (units unknown) (unknown) (unknown) (no date) (unknown) (unknown) Palpitations (units unknown) (unknown) (unknown) (no date) (unknown) (unknown) Patient: Nora Bunn MR#: [id number] (units unknown) (unknown) (unknown) (no date) (unknown) (unknown) Plan (units unknown) (unknown) (unknown) (no date) (unknown) (unknown) Position Sitting (un its unknown) (unknown) (unknown) (no date) (unknown) (unknown) Psych (units unknown) (unknown) (unknown) (no date) (unknown) (unknown) Pulse 67 (units unknown) (unknown) (unknown) (no date) (unknown) (unknown) Pulse Oximetry (%) 99 (units unknown) (unknown) (unknown) (no date) (unknown) (unknown) Pulse Source Monitor (units unknown) (unknown) (unknown) (no date) (unknown) (unknown) Qualifiers: (units unknown) (unknown) (unknown) (no date) (unknown) (unknown) RRR, no murmur s or ectopic beats (units unknown) (unknown) (unknown) (no date) (unknown) (unknown) Reason For Visit (un its unknown) (unknown) (unknown) (no date) (unknown) (unknown) Referral Cardio/Pulmonary Rehab R00.2 - Palpitations (units unknown) (unknown) (unknown) (no date) (unknown) (unknown) Referral Dieta ry E03.9 - Hypothyroidism, unspecified, E66.9 - Obesity, (units unknown) (unknown) (unknown) (no date) (unknown) (unknown) Referrals (units unknown) (unknown) (unknown) (no date) (unknown) (unknown) Resp (units unknown) (unknown) (unknown) (no date) (unknown) (unknown) Respiration 20 (unit s unknown) (unknown) (unknown) (no date) (unknown) (unknown) Right hip pain (unit s unknown) (unknown) (unknown) (no date) (unknown) (unknown) Signed By: <Electronically signed by Carson Montes De Oca MD> (units unknown) (unknown) (unknown) (no date) (unknown) (unknown) Signed (units unknown) (unknown) (unknown) (no date) (unknown) (unknown) Smoking Status : Current some day smoker (units unknown) (unknown) (unknown) (no date) (unknown) (unknown) Social History (unit s unknown) (unknown) (unknown) (no date) (unknown) (unknown) Status: Acute (units unknown) (unknown) (unknown) (no date) (unknown) (unknown) Status: Chronic (uni ts unknown) (unknown) (unknown) (no date) (unknown) (unknown) Surgical Histo ry (units unknown) (unknown) (unknown) (no date) (unknown) (unknown) Testosterone F ree and Total Today L68.0 - Hirsutism (units unknown) (unknown) (unknown) (no date) (unknown) (unknown) This note may have been all or partially generated using voice recognition (units unknown) (unknown) (unknown) (no date) (unknown) (unknown) Thyroid nodule (-2017) (units unknown) (unknown) (unknown) (no date) (unknown) (unknown) Tobacco + Subs tance Use (units unknown) (unknown) (unknown) (no date) (unknown) (unknown) Tobacco Status (unit s unknown) (unknown) (unknown) (no date) (unknown) (unknown) Trigeminal ner ve disorder, unspecified (units unknown) (unknown) (unknown) (no date) (unknown) (unknown) Visit Reasons: f/u new BP meds, weight loss options (units unknown) (unknown) (unknown) (no date) (unknown) (unknown) Vitals (units unknown) (unknown) (unknown) (no date) (unknown) (unknown) abnormal menst rual cycles, it is possible she has excess testosterone and we (units unknown) (unknown) (unknown) (no date) (unknown) (unknown) adult (units unknown) (unknown) (unknown) (no date) (unknown) (unknown) affect and nor mal thought content (units unknown) (unknown) (unknown) (no date) (unknown) (unknown) alcohol intake : current (units unknown) (unknown) (unknown) (no date) (unknown) (unknown) b.i.d.. She is hoping for possible increase. Her weight has not decreased (units unknown) (unknown) (unknown) (no date) (unknown) (unknown) bupropion HCl (Wellbutrin SR) (units unknown) (unknown) (unknown) (no date) (unknown) (unknown) bupropion HCl (Wellbutrin XL) 150 mg PO QAM 90 tabs 3RF (units unknown) (unknown) (unknown) (no date) (unknown) (unknown) class 2 (BMI 3 5 - 39.9) Serious obesity comorbidity presence: unspecified (units unknown) (unknown) (unknown) (no date) (unknown) (unknown) daily. For her weight, will refer to nutrition and check some labs. We also (units unknown) (unknown) (unknown) (no date) (unknown) (unknown) despite dietar y efforts. She is wondering about medication options. Also does (units unknown) (unknown) (unknown) (no date) (unknown) (unknown) did discuss so me possible weight loss medications including Ozempic. Will (units unknown) (unknown) (unknown) (no date) (unknown) (unknown) follow up on palpitations, weight, blood pressure as well as mood. She is not (units unknown) (unknown) (unknown) (no date) (unknown) (unknown) grossly normal , mental status grossly normal, speech and movement normal, normal (units unknown) (unknown) (unknown) (no date) (unknown) (unknown) have occurred. If there are any questions, please contact the Medical Records (units unknown) (unknown) (unknown) (no date) (unknown) (unknown) hirsutism and is uncertain about her menstrual cycle because of not having a (units unknown) (unknown) (unknown) (no date) (unknown) (unknown) household memb ers: spouse and significant other (units unknown) (unknown) (unknown) (no date) (unknown) (unknown) may occur. Occasional wrong-word or 'sound-alike' substitutions may have (units unknown) (unknown) (unknown) (no date) (unknown) (unknown) morphine [MORP NIYA] Allergy (Intermediate, Verified 04/10/21 12:56) (units unknown) (unknown) (unknown) (no date) (unknown) (unknown) normal cognition (un its unknown) (unknown) (unknown) (no date) (unknown) (unknown) normal respira tory effort, able to speak in complete sentences and no (units unknown) (unknown) (unknown) (no date) (unknown) (unknown) noticed a significant difference with fluoxetine and Wellbutrin 100 mg SR (units unknown) (unknown) (unknown) (no date) (unknown) (unknown) occurred due t o the inherent limitations of voice recognition software. Please (units unknown) (unknown) (unknown) (no date) (unknown) (unknown) other serum enzymes (units unknown) (unknown) (unknown) (no date) (unknown) (unknown) palpitations, and hot flashes (units unknown) (unknown) (unknown) (no date) (unknown) (unknown) patient alert, awake, patient oriented x3 (units unknown) (unknown) (unknown) (no date) (unknown) (unknown) projectile vomiting (units unknown) (unknown) (unknown) (no date) (unknown) (unknown) pt arrives for appt and states she wants to discuss weight loss options, heart (units unknown) (unknown) (unknown) (no date) (unknown) (unknown) read the note carefully and recognize, using context, where these substitutions (units unknown) (unknown) (unknown) (no date) (unknown) (unknown) respiratory distress (units unknown) (unknown) (unknown) (no date) (unknown) (unknown) software. Alth ough every effort is made to edit content, executive marketing assistant errors (units unknown) (unknown) (unknown) (no date) (unknown) (unknown) stability. John ahn also check 2 weeks Zio patch. (units unknown) (unknown) (unknown) (no date) (unknown) (unknown) switch Wellbut rin 250 mg extended release. For her hirsutism and previously (units unknown) (unknown) (unknown) (no date) (unknown) (unknown) unspecified, I 10 - Essential (primary) hypertension, R74.8 - Abnormal levels of (units unknown) (unknown) (unknown) (no date) (unknown) (unknown) uterus. She al so does continue to have intermittent palpitations. (units unknown) (unknown) (unknown) (no date) (unknown) (unknown) whether seriou s comorbidity present Body mass index: BMI 36.0-36.9 Qualified (units unknown) (unknown) (unknown) (no date) (unknown) (unknown) will check [facility] s lab. For her palpitations, thyroid lab and CBC to ensure (units unknown) (unknown) Result panel 16 (unknown) (no date) (unknown) (unknown) > 60 ml/min (unknown ) (unknown) (no date) (unknown) (unknown) > 60 ml/min (unknown ) (unknown) (no date) (unknown) (unknown) 0.4 mg/dl (unknown ) (unknown) (no date) (unknown) (unknown) 0.68 mg/dl (unknown ) (unknown) (no date) (unknown) (unknown) 1.2 (units unknown) (unknown) (unknown) (no date) (unknown) (unknown) 105 mmol/l (unknown ) (unknown) (no date) (unknown) (unknown) 108 mg/dl (unknown ) (unknown) (no date) (unknown) (unknown) 108 mg/dl (unknown ) (unknown) (no date) (unknown) (unknown) 138 mg/dl (unknown ) (unknown) (no date) (unknown) (unknown) 138 mg/dl (unknown ) (unknown) (no date) (unknown) (unknown) 141 mmol/l (unknown ) (unknown) (no date) (unknown) (unknown) 213 mg/dl (unknown ) (unknown) (no date) (unknown) (unknown) 213 mg/dl (unknown ) (unknown) (no date) (unknown) (unknown) 25 mg/dl (unknown ) (unknown) (no date) (unknown) (unknown) 29 iu/l (unknown ) (unknown) (no date) (unknown) (unknown) 29 mmol/l (unknown ) (unknown) (no date) (unknown) (unknown) 3.7 g/dl (unknown ) (unknown) (no date) (unknown) (unknown) 3.7 mmol/l (unknown ) (unknown) (no date) (unknown) (unknown) 36.8 (units unknown) (unknown) (unknown) (no date) (unknown) (unknown) 4.5 g/dl (unknown ) (unknown) (no date) (unknown) (unknown) 43 iu/l (unknown ) (unknown) (no date) (unknown) (unknown) 53 mg/dl (unknown ) (unknown) (no date) (unknown) (unknown) 53 mg/dl (unknown ) (unknown) (no date) (unknown) (unknown) 69 u/l (unknown ) (unknown) (no date) (unknown) (unknown) 8.2 g/dl (unknown ) (unknown) (no date) (unknown) (unknown) 9.1 mg/dl (unknown ) (unknown) (no date) (unknown) (unknown) 94 mg/dl (unknown ) (unknown) (no date) (unknown) (unknown) 94 mg/dl (unknown ) Result panel 17 (unknown) (no date) (unknown) (unknown) 117.8 mg/dl (unknown ) (unknown) (no date) (unknown) (unknown) 28.0 ug/mg cr (unknow n) (unknown) (no date) (unknown) (unknown) 28.0 ug/mg cr (unknow n) (unknown) (no date) (unknown) (unknown) 3.3 mg/dl (unknown ) Result panel 18 (unknown) (no date) (unknown) (unknown) 0.30 uiu/ml (unknown ) Result panel 19 (unknown) (no date) (unknown) (unknown) 0.30 uiu/ml (unknown ) (unknown) (no date) (unknown) (unknown) 1.55 ng/dl (unknown ) Result panel 20 (unknown) (no date) (unknown) (unknown) 107 pg/ml (unknown ) (unknown) (no date) (unknown) (unknown) 107 pg/ml (unknown ) Result panel 21 (unknown) (no date) (unknown) (unknown) 0.29 ng/dl (unknown ) (unknown) (no date) (unknown) (unknown) 1.36 % (unknown ) (unknown) (no date) (unknown) (unknown) 1.36 % (unknown ) (unknown) (no date) (unknown) (unknown) 107 pg/ml (unknown ) (unknown) (no date) (unknown) (unknown) 107 pg/ml (unknown ) (unknown) (no date) (unknown) (unknown) 21.4 ng/dl (unknown ) (unknown) (no date) (unknown) (unknown) 21.4 ng/dl (unknown ) Social History date description facility 2023-01-15 00:00 Current some day [facility] Vital Signs date measurement value units 2023-01-15 00:00 BP_diastolic 88 mmHg 2023-01-15 00:00 BP_systolic 142 mmHg 2023-01-15 00:00 heart_rate 67 /min 2023-01-15 00:00 height_metric 165.1 cm 2023-01-15 00:00 height_standard 65 in 2023-01-15 00:00 o2_saturation 99 % 2023-01-15 00:00 respiration_rate 20 /min
[2023-03-14 09:38] LABS: B. PARAPERTUSSIS- RESP PCR PAN NOT DETECTED; B. PERTUSSIS- RESP PCR PANEL NOT DETECTED; C. PNEUMONIAE- RESP PCR PANEL NOT DETECTED; CORONAVIRUS 229E-RESP PCR NOT DETECTED; CORONAVIRUS HKU1-RESP PCR NOT DETECTED; CORONAVIRUS NL63-RESP PCR NOT DETECTED; CORONAVIRUS OC43-RESP PCR NOT DETECTED; HUMAN METAPNEUMOVIRUS NOT DETECTED; INFLUENZA A- RESP PCR PANEL NOT DETECTED; INFLUENZA B - RESP PCR PANEL NOT DETECTED; M. PNEUMONIAE- RESP PCR PANEL NOT DETECTED; PARAINFLUENZA VIRUS 1 NOT DETECTED; PARAINFLUENZA VIRUS 2 NOT DETECTED; PARAINFLUENZA VIRUS 3 NOT DETECTED; PARAINFLUENZA VIRUS 4 NOT DETECTED; RHINOVIRUS/ENTEROVIRUS NOT DETECTED; RSV- RESP PCR PANEL NOT DETECTED; SARS-CoV-2 -RESP PCR PANEL NOT DETECTED
[2023-03-14 10:26] VITALS: BP 134/94
== END 2023-03-14 10:26 | disposition home or self-care (01) ==
LOC: ED 08:07
DX: J06.9 Acute upper respiratory infection, unspecified (principal); Z20.822 Contact with and (suspected) exposure to COVID-19
CPT/HCPCS: 87070; 87430; 87633; 99283; 99284; A9270

== ENCOUNTER 2024-05-19 15:12 | Outpatient (CLI) | payer MEDICAID ==
[2024-05-19 15:28] LABS: BASOPHILS # (AUTO) 0.1 10^3/uL (0.0-0.1); BASOPHILS % (AUTO) 1.1 %; EOSINOPHILS # (AUTO) 0.1 10^3/uL (0.0-0.7); EOSINOPHILS % (AUTO) 1.5 %; LYMPHOCYTES # (AUTO) 1.5 10^3/uL (1.5-3.5); MEAN CORPUSCULAR HEMOGLOBIN 27.4 pg (27.0-31.0); MEAN CORPUSCULAR HGB CONC 31.7 g/dL (32.0-36.0); MEAN CORPUSCULAR VOLUME 86.3 fL (81.0-99.0); MEAN PLATELET VOLUME 9.6 fL (7.9-10.8); MONOCYTES # (AUTO) 0.5 10^3/uL (0.0-1.0); MONOCYTES % (AUTO) 5.4 %; NEUTROPHILS # (AUTO) 6.7 10^3/uL (1.5-6.6); NEUTROPHILS % (AUTO) 74.7 %; PLT - PLATELET COUNT 442 10^3/uL (130-450); RED BLOOD COUNT 4.75 10^6/uL (4.20-5.40); RED CELL DISTRIBUTION WIDTH 12.5 % (12.0-15.0); WHITE BLOOD COUNT 8.9 x10^3/uL (4.8-10.8)
[2024-05-19 15:41] LABS: ALBUMIN 4.7 g/dL (3.2-5.5); ALBUMIN/GLOBULIN RATIO 1.4 (1.0-2.2); BILIRUBIN,TOTAL 0.5 mg/dL (0.2-1.0); CALCIUM 10.2 mg/dL (8.5-10.3); POTASSIUM 3.8 mmol/L (3.5-4.5)
== END 2024-05-19 15:13 | disposition home or self-care (01) ==
LOC: LAB 15:12
PROVIDERS: ATTEND Family Medicine
DX: I10 Essential (primary) hypertension (principal); R74.8 Abnormal levels of other serum enzymes
CPT/HCPCS: 36415; 80053; 85025

== ENCOUNTER 2024-06-17 11:10 | Outpatient (CLI) | payer BC ==
--- NOTE | 2024-06-20 15:25 | XRAY Report ---
PROCEDURE: Hip w/Pelvis 2-3V RT INDICATIONS: RIGHT HIP PAIN TECHNIQUE: 2 views of the hip were acquired. COMPARISON: None. FINDINGS: Bones: No fractures or dislocations. No suspicious bony lesions. Trace narrowing at the right hip joint. Soft tissues: No suspicious soft tissue calcifications or masses. IMPRESSION: Trace right hip joint space narrowing possibly related to early arthritic change. Reviewed by: Velvet Ogden MD on 06/20/2024 3:24 PM PDT Approved by: Velvet Ogden MD on 06/20/2024 3:24 PM PDT Station ID: [id number]
== END 2024-06-17 11:11 | disposition home or self-care (01) ==
LOC: DI 11:10
PROVIDERS: ATTEND Family Medicine
DX: M25.551 Pain in right hip (principal)